=== PATIENT | male | born 1975 | race African-American/Black ===

== ENCOUNTER 2017-08-21 07:03 | Emergency (ER) | payer SELFPAY ==
[~2017-08-21] VITALS: Ht 177.8 cm; Wt 147.0 kg
[~2017-08-21 07:03] MED LIST: AMOXICILLIN500 MG ORAL; IBUPROFEN600 MG ORAL; KEFLEX500 MG ORAL; MEDROL DOSEPAK4 MG ORAL; NKM
[2017-08-21 07:18] VITALS: BP 157/96
--- NOTE | 2017-08-21 07:24 | Emergency Room Report ---
History of Present Illness General Chief Complaint: Male Urogenital Problems Source: Patient Present Illness HPI Patient residual body wash which includes soap and deodorant. Since that time he broke out between his penis and scrotum. He's been using hydrocortisone which is helped the itching but the rash still is still there. He denies pain. His tetanus is up-to-date. Denies any dysuria, fevers, abdominal pain, hematuria. He states he is anxious about being up to Dr. and that's why his blood pressure and pulse rate are up. He denies chest pain, shortness of breath, nausea, vomiting, diarrhea, abdominal pain, joint pain, headache, other skin rashes. Allergies: Coded Allergies: No Known Allergies (Unverified , 10/01/14) Patient History Past Medical History: see triage record Social History: Denies: smoking Social History Narrative database security administrator Reviewed Nursing Documentation: PMH: Agreed; PSxH: Agreed Nursing Documentation-PMH Past Medical History: No Stated History Hx Cardiac Problems: No Hx Hypertension: No Hx Pacemaker: No Hx Asthma: No Hx COPD: No Hx Diabetes: No Hx Cancer: No Hx Gastrointestinal Problems: No Hx Dialysis: No Hx Neurological Problems: No Hx Cerebrovascular Accident: No Hx Seizures: No Review of Systems Constitutional: Reports: see HPI Respiratory: Reports: see HPI Cardiovascular: Reports: see HPI Gastrointestinal: Reports: see HPI Genitourinary: Reports: see HPI Musculoskeletal: Reports: see HPI Skin: Reports: see HPI Psychiatric: Reports: see HPI Allergic: Reports: see HPI Physical Exam Vital Signs Date Time Temp Pulse Resp B/P (MAP) Pulse Ox O2 Delivery O2 Flow Rate FiO2 08/21/17 07:08 97.8 120 22 157/96 96 Room Air 97.9 Sp02 EP Interpretation: reviewed, normal General Appearance: well appearing, no apparent distress Head: normocephalic, atraumatic Eyes: bilateral eye normal inspection, bilateral eye PERRL ENT: hearing grossly normal, normal voice Neck: full range of motion, supple Respiratory: no respiratory distress, speaking full sentences Gastrointestinal: normal inspection, overweight Genitourinary: other - hypopigmented area with inflammation under shaft of penis and involving scrota. No drainage. Circumcised Musculoskeletal: no calf tenderness Neurologic: alert, oriented x3, normal gait, grossly normal Psychiatric: mood/affect normal, anxious Skin: other - see genitals Medical Decision Making Diagnostic Impression: Primary Impression: Rash of genital area Additional Impression: Tachycardia ER Course Patient presents for rash and genital areas. Differential includes fungal, allergic, bacterial amongst others. At this point he's been using hydrocortisone and it has helped slightly better however the rash persists. Indication is for antifungal and antibiotic ointment. There is no dysuria and urine does not need to be checked. The patient is treated with bacitracin here. The patient is stable for outpatient observation and treatment. Last Vital Signs Date Time Temp Pulse Resp B/P (MAP) Pulse Ox O2 Delivery O2 Flow Rate FiO2 08/21/17 07:33 97.9 122 22 157/96 95 Room Air 97.9 Status: improved Disposition: HOME, SELF-CARE Condition: Improved Scripts Clotrimazole* (LOTRIMIN*) 15 Gm Cream..g. 1 APPLIC TOPIC TWICE A DAY, #20 GM Prov: Shay Wills M.D. 08/21/17 Bacitracin (Bacitracin) 28.4 Gm Oint...g. 1 APPLIC TOPIC BID, #20 GM Prov: Shay Wills M.D. 08/21/17 Shay Wills M.D. Aug 21, 2017 07:24
[2017-08-21] MEDS ORDERED: BACITRACIN15 GM TOPIC (07:26)
[2017-08-21] MEDS ORDERED: CLOTRIMAZOLE15 GM TOPIC (07:26)
[2017-08-21] MEDS ORDERED: Bacitracin Oint UD TOPIC ONE (07:30)
[2017-08-21 07:33] VITALS: BP 157/96
== END 2017-08-21 07:38 | disposition home or self-care (01) ==
LOC: EMR 07:29
DX: R21 Rash and other nonspecific skin eruption (principal); R00.0 Tachycardia, unspecified
CPT/HCPCS: 99284